=== PATIENT | male | born 1990 | race Caucasian/White ===

== ENCOUNTER 2019-09-20 16:40 | Inpatient (IN) | payer OTHER ==
[~2019-09-20] VITALS: Ht 172.7 cm; Wt 89.8 kg
[2019-09-20 17:43] LABS: BASOPHIL % 0.3 % (0-2); PLATELET COUNT 251 x10^3mcL (130-400); RED CELL DISTRIBUTION WIDTH 13.4 % (11.5-14.5)
[2019-09-20 17:54] LABS: CALCIUM 8.3 mg/dL (8.5-10.1); CARBON DIOXIDE 33.1 mmol/L (21-32); CHLORIDE SERUM 96 mmol/L (98-107); CREATININE SERUM 1.2 mg/dL (0.7-1.3); GFR1 > 60 mL/min; GLUCOSE SERUM 130 mg/dL (74-106); POTASSIUM SERUM 3.7 mmol/L (3.5-5.1); SODIUM SERUM 137 mmol/L (136-145)
[2019-09-20 17:59] LABS: ALBUMIN 3.4 g/dL (3.4-5.0); ALKALINE PHOSPHATASE 67 U/L (46-116); ALT/SGPT 38 U/L (16-63); AMYLASE 40 U/L (25-115); AST/SGOT 12 U/L (15-37); BILIRUBIN TOTAL 0.68 mg/dL (0.20-1.00); LIPASE 110 IU/L (73-393); TOTAL PROTEIN, SERUM 8.1 g/dL (6.4-8.2)
[2019-09-20 20:25] VITALS: BP 144/90
[2019-09-20 20:28] VITALS: Ht 172.7 cm; Wt 89.8 kg
[2019-09-21 03:51] LABS: microscopic required? NO
[2019-09-21 04:10] LABS: urine erythrocyte NEGATIVE (NEGATIVE)
[2019-09-21 04:21] LABS: AMPHETAMINE QUAL UR NONE DETECTED (See below)
[2019-09-21 05:37] VITALS: BP 156/96
[2019-09-21 05:57] LABS: PLATELET COUNT 279 x10^3mcL (130-400); RED CELL DISTRIBUTION WIDTH 13.5 % (11.5-14.5)
[2019-09-21 06:00] LABS: BASOPHIL % 0 % (0-2)
[2019-09-21 06:45] LABS: ALKALINE PHOSPHATASE 68 U/L (46-116); ALT/SGPT 36 U/L (16-63); AST/SGOT 15 U/L (15-37); BILIRUBIN TOTAL 0.9 mg/dL (0.20-1.00); CALCIUM 8.2 mg/dL (8.5-10.1); CARBON DIOXIDE 29.3 mmol/L (21-32); CHLORIDE SERUM 100 mmol/L (98-107); CREATININE SERUM 1.1 mg/dL (0.7-1.3); GFR1 > 60 mL/min; GLUCOSE SERUM 135 mg/dL (74-106); MAGNESIUM 2.2 mg/dL (1.8-2.4); POTASSIUM SERUM 4.4 mmol/L (3.5-5.1); SODIUM SERUM 140 mmol/L (136-145); TOTAL PROTEIN, SERUM 8.1 g/dL (6.4-8.2)
[2019-09-21 06:49] LABS: ALBUMIN 3.2 g/dL (3.4-5.0)
[2019-09-21 09:52] VITALS: BP 147/98
[2019-09-21 16:54] VITALS: BP 147/73
[2019-09-21 19:25] VITALS: BP 142/90
[2019-09-21 21:18] VITALS: BP 142/90
[2019-09-22 02:17] LABS: BASOPHIL % 0.2 % (0-2); PLATELET COUNT 282 x10^3mcL (130-400)
[2019-09-22 06:19] VITALS: BP 147/92
[2019-09-22 06:43] LABS: BILIRUBIN TOTAL 4.29 mg/dL (0.20-1.00); CALCIUM 7.5 mg/dL (8.5-10.1); CARBON DIOXIDE 29.1 mmol/L (21-32); POTASSIUM SERUM 4.5 mmol/L (3.5-5.1); TOTAL PROTEIN, SERUM 6.7 g/dL (6.4-8.2)
[2019-09-22 07:06] LABS: ALBUMIN 2.3 g/dL (3.4-5.0)
[2019-09-22 08:25] VITALS: BP 142/95
[2019-09-22 08:43] LABS: PLATELET COUNT 277 x10^3mcL (130-400)
[2019-09-22 12:12] VITALS: BP 149/97
[2019-09-22 13:37] LABS: BAND NEUTROPHIL 26 % (0-10); BASOPHIL 0 % (0-2); MONOCYTE 13 % (0-7); PLATELET MORPHOLOGY PLATELETS INCREASED; SEGMENTED NEUTROPHILS 58 % (37-75); rbc morphology (normal/abnorm) ABNORMAL (NORMAL)
[2019-09-22 16:44] VITALS: BP 146/94
[2019-09-22 20:49] VITALS: BP 151/101
[2019-09-23 05:16] VITALS: BP 129/86
[2019-09-23 07:19] LABS: ALKALINE PHOSPHATASE 56 U/L (46-116); ALT/SGPT 27 U/L (16-63); AST/SGOT 29 U/L (15-37); CALCIUM 7.4 mg/dL (8.5-10.1); CARBON DIOXIDE 28.7 mmol/L (21-32); CHLORIDE SERUM 104 mmol/L (98-107); CREATININE SERUM 1.4 mg/dL (0.7-1.3); GFR1 > 60 mL/min; GLUCOSE SERUM 158 mg/dL (74-106); POTASSIUM SERUM 4.2 mmol/L (3.5-5.1); SODIUM SERUM 141 mmol/L (136-145); TOTAL PROTEIN, SERUM 6.7 g/dL (6.4-8.2)
[2019-09-23 08:00] LABS: PLATELET COUNT 271 x10^3mcL (130-400); RED CELL DISTRIBUTION WIDTH 14.1 % (11.5-14.5)
[2019-09-23 08:09] LABS: BASOPHIL % 0 % (0-2)
[2019-09-23 08:45] VITALS: BP 144/91
[2019-09-23 09:31] LABS: rbc morphology (normal/abnorm) ABNORMAL (NORMAL)
[2019-09-23 13:47] VITALS: BP 137/85
[2019-09-23 17:45] VITALS: BP 139/89
[2019-09-23 20:32] VITALS: BP 130/83
[2019-09-24 04:35] VITALS: BP 126/85
[2019-09-24 07:40] LABS: CALCIUM 8.5 mg/dL (8.5-10.1); CARBON DIOXIDE 24.9 mmol/L (21-32); CHLORIDE SERUM 105 mmol/L (98-107); GFR1 > 60 mL/min; GLUCOSE SERUM 161 mg/dL (74-106); SODIUM SERUM 140 mmol/L (136-145)
[2019-09-24 08:32] LABS: BASOPHIL % 0.2 % (0-2); PLATELET COUNT 330 x10^3mcL (130-400); RED CELL DISTRIBUTION WIDTH 14.1 % (11.5-14.5)
[2019-09-24 08:45] VITALS: BP 132/84
[2019-09-24 12:26] VITALS: BP 119/78
[2019-09-24 17:29] VITALS: BP 138/93
[2019-09-24 20:28] VITALS: BP 117/78
[2019-09-25 05:00] VITALS: BP 123/82
[2019-09-25 07:08] LABS: BASOPHIL % 0.3 % (0-2); PLATELET COUNT 327 x10^3mcL (130-400); RED CELL DISTRIBUTION WIDTH 14.1 % (11.5-14.5)
[2019-09-25 09:17] VITALS: BP 130/85
[2019-09-25 09:26] VITALS: BP 130/85
[2019-09-25 09:50] LABS: CALCIUM 8.3 mg/dL (8.5-10.1); CARBON DIOXIDE 26.8 mmol/L (21-32); CHLORIDE SERUM 104 mmol/L (98-107); GFR1 > 60 mL/min; GLUCOSE SERUM 131 mg/dL (74-106); POTASSIUM SERUM 4.5 mmol/L (3.5-5.1); SODIUM SERUM 139 mmol/L (136-145)
[2019-09-25 12:37] VITALS: BP 132/83
[2019-09-25 16:20] VITALS: BP 132/89
[2019-09-25 21:46] VITALS: BP 127/70
[2019-09-26 05:31] VITALS: BP 115/68
[2019-09-26 08:37] VITALS: BP 114/71
[2019-09-26 12:13] VITALS: BP 124/71
[2019-09-26 16:10] VITALS: BP 128/83
[2019-09-26 19:40] VITALS: BP 136/89
[2019-09-26 19:57] VITALS: BP 136/89
[2019-09-27 05:23] VITALS: BP 119/78
[2019-09-27 08:39] VITALS: BP 124/57
[2019-09-27 08:57] VITALS: BP 119/78
== END 2019-09-27 10:05 | disposition home or self-care (01) | DRG 330 ==
LOC: ED 16:40 → DU 18:57 → MU 18:57 → DU 09-21 23:28 → MU 09-26 21:38
PROVIDERS: Emergency Medicine; Family Medicine Addiction Medicine; Internal Medicine Pulmonary Disease; ADMIT Internal Medicine Pulmonary Disease
PROC: 0DBA0ZZ Excision of Jejunum, Open Approach (ICD-10-PCS; principal; 2019-09-22)
PROC: 0DBB0ZZ Excision of Ileum, Open Approach (ICD-10-PCS; 2019-09-22)
PROC: 0DTJ0ZZ Resection of Appendix, Open Approach (ICD-10-PCS; 2019-09-22)
PROC: 0JH83XZ Insertion of Tunneled Vascular Access Device into Abdomen Subcutaneous Tissue and Fascia, Percutaneous Approach (ICD-10-PCS; 2019-09-22)
DX: K56.600 Partial intestinal obstruction, unspecified as to cause (principal); K57.20 Diverticulitis of large intestine with perforation and abscess without bleeding
CPT/HCPCS: 90658; 94150; 97116-GP; 97530-GP; G0378; J0330; J0690; J0696; J1170; J1644; J1885; J2060; J2175; J2250; J2270; J2405; J2543; J2704; J2710; J3010; J3480; J3490; J7120; Q0092; Q9966; Q9967